=== PATIENT | male | born 1945 | race Caucasian/White ===

== ENCOUNTER → 2024-01-09 18:03 | Outpatient (REF) | payer OTHER, SELFPAY | LOC: MRI 18:03 | PROVIDERS: ATTENDING PHYSICIAN Physical Medicine & Rehabilitation Pain Medicine; FAMILY PHYSICIAN Internal Medicine | DX: M54.50 Low back pain, unspecified (principal); M54.16 Radiculopathy, lumbar region | CPT/HCPCS: 72158; A9575 ==